=== PATIENT | female | born 1990 | race Caucasian/White ===

== ENCOUNTER 2017-01-16 09:12 | Day surgery (SDC) | payer MEDICAID ==
[~2017-01-16] VITALS: Ht 160 cm; Wt 83.9 kg
[2017-01-16] VITALS (13 sets, daily range): BP systolic 85–119; BP diastolic 48–74; PULSE 67–96; RESP 12–24; Ht 160 cm; Wt 83.9 kg
[~2017-01-16 09:12] MED LIST: LACTATED RINGER'S 1,000 ML IV SCH; PRENAT PO
[2017-01-16 10:54] LABS: ADD SCAN DIFF NO
[2017-01-16 10:57] LABS: BASOPHILS % 0.6 % (0.0-2.0); EOSINOPHILS # 0.9 10^3/ul (0.0-0.5); EOSINOPHILS % 15.1 % (0.0-7.0); HEMATOCRIT 40.8 % (37.0-47.0); HEMOGLOBIN 13.8 g/dl (12.0-16.0); LYMPHOCYTES # 2.1 10^3/ul (0.8-2.9); LYMPHOCYTES % 33.9 % (15.0-51.0); MEAN CORPUSCULAR HEMOGLOBIN 29.7 pg (29.0-33.0); MEAN CORPUSCULAR HGB CONC 33.8 g/dl (32.0-37.0); MEAN CORPUSCULAR VOLUME 87.9 fl (82.0-101.0); MONOCYTE # 0.5 10^3/ul (0.3-0.9); MONOCYTES % 8.4 % (0.0-11.0); NEUTROPHIL # 2.6 10^3/ul (1.6-7.5); NEUTROPHILS % 41.7 % (39.0-77.0); PLATELET COUNT 241 10^3/UL (140-415); RED BLOOD COUNT 4.64 10^6/ul (4.20-5.40); RED CELL DISTRIBUTION WIDTH 12.7 % (11.5-14.5); WHITE BLOOD COUNT 6.2 10^3/ul (4.8-10.8)
[2017-01-16] MEDS ORDERED: PROPOFOL 20 ML ONE (11:07)
[2017-01-16] MEDS ORDERED: METOCLOPRAMIDE 10 MG INJ ONE (11:07)
[2017-01-16] MEDS ORDERED: ONDANSETRON 4 MG INJ ONE (11:07)
[2017-01-16] MEDS ORDERED: HYDROmorphONE 2 MG/ML SYG ONE (11:07)
[2017-01-16] MEDS ORDERED: ROCURONIUM 50 MG INJ ONE (11:07)
[2017-01-16] MEDS ORDERED: MIDAZOLAM 1 MG/ML 2 ML INJ ONE (11:07)
[2017-01-16] MEDS ORDERED: ROPIVACAINE 0.5 % 30 ML VIAL ONE (11:08)
[2017-01-16] MEDS ORDERED: NEOSTIGMINE 3 MG/3 ML SYRINGE ONE (11:08)
[2017-01-16] MEDS ORDERED: KETOROLAC 30 MG INJ ONE (11:08)
[2017-01-16] MEDS ORDERED: GLYCOPYRROLATE 0.4 MG INJ ONE (11:08)
[2017-01-16] MEDS ORDERED: BUPIVACAINE 0.5%/EPI (SDV) 30 ML INJ INJ ONE (11:30)
[2017-01-16] MEDS ORDERED: CEFAZOLIN 1 GM INJ ONE (11:34)
[2017-01-16] MEDS ORDERED: BUPIVACAINE 0.5%/EPI (SDV) 30 ML INJ ONE (11:57)
[2017-01-16] MEDS ORDERED: METOCLOPRAMIDE 10 MG INJ IV PRN (12:00)
[2017-01-16] MEDS ORDERED: MEPERIDINE 25 MG INJ IV PRN (12:00)
[2017-01-16] MEDS ORDERED: OXYCODONE/ACETAMINOPHEN (5/325) TAB PO PRN ×3 (12:00→13:30)
[2017-01-16] MEDS ORDERED: HYDROmorphONE (0.2 MG/ML) 10ML SYG IV PRN ×3 (12:00)
[2017-01-16] MEDS ORDERED: ONDANSETRON 4 MG INJ IV PRN ×2 (12:00→13:30)
[2017-01-16] MEDS ORDERED: DIPHENHYDRAMINE 50 MG INJ IV PRN (12:00)
--- NOTE | 2017-01-16 12:22 | PREOPHP ---
DATE OF ADMISSION: 01/16/2017 HISTORY OF PRESENT ILLNESS: A 26-year-old female 2, para 2, last menstrual period , requests surgical sterilization by bilateral tubal ligation. PAST MEDICAL HISTORY: Unremarkable. PAST SURGICAL HISTORY: Unremarkable. ALLERGIES: NO KNOWN ALLERGIES. FAMILY HISTORY: Diabetes. PHYSICAL EXAMINATION: VITAL SIGNS: The patient is afebrile. Vital signs stable. HEAD, NECK AND CHEST: Within normal limits. ABDOMEN: Soft, nontender, nondistended. PELVIC: Normal. EXTREMITIES: Within normal limits. NEUROLOGIC: Within normal limits. IMPRESSION: Voluntary sterilization. PLAN: Minilaparotomy, bilateral tubal ligation. Risks, benefits and alternatives of the procedure were explained to the patient. The patient has been counseled about all of her contraceptive option s including all methods of sterilization. It was explained to patient that with bilateral tubal lig ation, there is a chance of failure resulting in ectopic and/or intrauterine . A fter counseling, the patient said she understood and gave informed consent for the procedure. Dictated By: PAOLO ANDERSON/CLARA Conf#: [id number] DID#: [id number]
--- NOTE | 2017-01-16 13:23 | OPR ---
DATE OF OPERATION: 01/16/2017 PREOPERATIVE DIAGNOSIS: Voluntary sterilization. POSTOPERATIVE DIAGNOSIS: Voluntary sterilization. OPERATION PERFORMED: Minilaparotomy, bilateral tubal ligation. ANESTHESIA: General. ANESTHESIOLOGIST: Dr. Francisca MD 4 H [employer] SPECIALIST: physical therapist technician. PROCEDURE: The patient was taken to the operating room and placed on the operating table in supine position. After adequate general anesthesia was given, the area was prepared and draped in the usua l sterile fashion. Using a scalpel, Pfannenstiel incision was made about 2 fingerbreadths above the symphysis pubis. T he incision was carried to the fascia. The fascia was incised and extended bilaterally with Wu sc issors. Two Mario's were used to separate the fascia from the muscle. The muscle was dissected in the midline down to peritoneum. The peritoneum was bluntly entered. Upon entering the peritoneal cavity, the right fallopian tube was grasped with a [place] clamp and followed to its fimbrial end t o confirm its identity. Using 0 plain suture ligature, a 5 cm segment of the right fallopian tube w as doubly ligated. Using Metzenbaum scissors, a portion of the right fallopian tube above the ligat ed area was excised and sent to pathology. Same procedure was repeated on the left fallopian tube. After assuring hemostasis, the muscle was reapproximated with 2-0 chromic. The subcutaneous tissue was reapproximated with 0 chromic. The skin was closed with sharyn. ESTIMATED BLOOD LOSS: Minimal. COMPLICATIONS: None. COUNTS: All counts were correct. Dictated By: PAOLO ANDERSON/CLARA Conf#: [id number] DID#: [id number]
[2017-01-16] MEDS ORDERED: morphine 2 MG INJ IV PRN (13:30)
[2017-01-16] MEDS ORDERED: KETOROLAC 30 MG INJ IV PRN (13:30)
== END 2017-01-16 15:07 | disposition home or self-care (01) ==
LOC: SDS 09:12
PROVIDERS: ATTEND Obstetrics & Gynecology
DX: Z30.2 Encounter for sterilization (principal)
CPT/HCPCS: 58600; 85025; 86850; 86900; 86901; 88302; J0690; J1170; J1885; J2175; J2250; J2270; J2405; J2710; J2765; Z7512; Z7610; J2795